=== PATIENT | male | born 1945 | race Caucasian/White ===

== ENCOUNTER 2021-09-25 05:52 | Day surgery (SDC) | payer MEDICARE, BC ==
[2021-09-20 13:43] VITALS: BMI 23.6
[2021-09-25] MEDS ORDERED: Lidocaine 1% MPF 2 ML VIAL ONE (08:00)
[2021-09-25] MEDS ORDERED: Fentanyl 100 MCG/2 ML VIAL ONE (08:54)
[2021-09-25] MEDS ORDERED: Dexamethasone 4 mg/ml Vial ONE (08:54)
[2021-09-25] MEDS ORDERED: Lidocaine 1% w/Epinephrine 1:100K 20 ML VIAL ONE (08:54)
[2021-09-25] MEDS ORDERED: Lidocaine 1% PF 5 ML VIAL ONE (08:54)
[2021-09-25] MEDS ORDERED: PROPOFOL 20 ML ONE (08:54)
[2021-09-25] MEDS ORDERED: Lidocaine 1% (PF) 30 ML VIAL ONE (08:54)
[2021-09-25] MEDS ORDERED: Ondansetron PF 4 MG/2 ML Vial ONE (08:54)
[2021-09-25] MEDS ORDERED: CEFAZOLIN 1 GM VIAL ONE (09:02)
[2021-09-25] MEDS ORDERED: PHENYLEPHRINE-NS 100 MCG/ML 10 ML SYRINGE ONE (09:50)
== END 2021-09-25 11:15 | disposition home or self-care (01) ==
LOC: CSHSDC 05:52
PROVIDERS: ATTEND Otolaryngology Otolaryngic Allergy
PROC: 07B20ZX Excision of Left Neck Lymphatic, Open Approach, Diagnostic (ICD-10-PCS; principal; 2021-09-25)
DX: C83.31 Diffuse large B-cell lymphoma, lymph nodes of head, face, and neck (principal); I10 Essential (primary) hypertension; E04.1 Nontoxic single thyroid nodule; I25.10 Atherosclerotic heart disease of native coronary artery without angina pectoris; Z79.02 Long term (current) use of antithrombotics/antiplatelets; Z79.82 Long term (current) use of aspirin; Z79.890 Hormone replacement therapy; Z79.899 Other long term (current) drug therapy; Z95.1 Presence of aortocoronary bypass graft
CPT/HCPCS: 88184; 88237; 88264; 88280; 88307; 88341; 88342; 88360; 88365; J0690; J1100; J2001; J2405; J2704; J3010